=== PATIENT | male | born 1995 | race Caucasian/White ===

== ENCOUNTER 2019-11-20 02:49 | Emergency (ER) | payer OTHER ==
[~2019-11-20] VITALS: Ht 177.8 cm; Wt 68.0 kg
[2019-11-20 02:50] VITALS: BP 123/61
[2019-11-20] MEDS ORDERED: KETOROLAC 30 MG/ML VIAL IVP ONE (03:10)
[2019-11-20] MEDS ORDERED: HYDROcodone/APAP 5/325 MG 1 TAB TAB PO ONE (03:10)
[2019-11-20] MEDS ORDERED: NACL 0.9% 1,000 ML IV ONE (03:10)
[2019-11-20 03:31] LABS: BASOPHILS # (AUTO) 0.2 K/uL (0.00-0.22); BASOPHILS % (AUTO) 2.1 % (0.0-2.0); EOSINOPHILS # (AUTO) 0.1 K/uL (0-0.4); EOSINOPHILS % (AUTO) 1.4 % (0.0-4.0); HEMOGLOBIN 13.9 g/dL (12.0-18.0); LYMPHOCYTES # (AUTO) 2.5 K/uL (2.0-11.5); LYMPHOCYTES % (AUTO) 31.3 % (20.5-51.1); MEAN CORPUSCULAR HEMOGLOBIN 31 pg (27-31); MEAN CORPUSCULAR HGB CONC 35 g/dL (33-37); MEAN CORPUSCULAR VOLUME 89.7 fL (80-94); MONOCYTES % (AUTO) 12.8 % (1.7-9.3); NEUTROPHILS # (AUTO) 4.3 K/uL (1.8-7.7); NEUTROPHILS % (AUTO) 52.4 % (42.2-75.2); PLATELET COUNT (AUTO) 279 K/uL (140-450); RED BLOOD CELL COUNT(AUTO) 4.46 MIL/uL (4.20-6.10); RED CELL DISTRIBUTION WIDTH 12.2 % (11.6-13.7); WHITE BLOOD COUNT (AUTO) 8.1 K/uL (4.8-10.8)
[2019-11-20 03:32] LABS: APPEARANCE,URINE CLOUDY (CLEAR); BILIRUBIN,URINE NEGATIVE (NEGATIVE); BLOOD, URINE 3+ (NEGATIVE); COLOR,URINE YELLOW (YELLOW); LEUKOCYTE ESTERASE ,URINE 3+ (NEGATIVE); NITRITE, URINE NEGATIVE (NEGATIVE); PH,URINE 6.5 (5.0-9.0); UGLUCOSE NEGATIVE (NEGATIVE)
--- NOTE | 2019-11-20 03:33 | NUR ---
PATIENT REPORTS LOWER BACK PAIN AND PAINFUL URINATION FOR 4-5 DAYS. PATIENT ALSO STATING NECK PAIN. NO OTHER SYMPTOMS REPORTED. NO INJURY. NO NVD. LUNGS CLEAR. BOWELS ACTIVE. ABD SOFT AND NON-TENDER. HX: CILIACS DISEASE. BED LOW LOCKED, SIDE RAIL UP ON ONE SIDE. FAMILY AT BEDSIDE.
[2019-11-20 03:52] LABS: BARBITURATE, URINE NEG. ng/ml (NEG <=200); BENZODIAZEPINE, URINE NEG. ng/mL (NEG <=200); CANNABINOID, URINE POS. ng/mL (NEG <=50); COCAINE, URINE NEG. ng/mL (NEG <=300); OPIATE, URINE NEG. ng/mL (NEG <=2000); PHENCYCLIDINE SCREEN,URINE NEG. ng/mL (NEG <=25)
[2019-11-20 03:55] LABS: ALBUMIN 4.1 g/dL (3.4-5.0); ANION GAP 10.8 (8-16); CARBON DIOXIDE 30.2 mmol/L (21-32); CREATININE 0.8 mg/dL (0.6-1.3); TOTAL BILIRUBIN 0.7 mg/dL (0.0-1.0)
[2019-11-20 03:57] LABS: RBC,URINE TOO NUMEROUS TO COUN /HPF (0-5); WBC,URINE TOO MANY TO COUNT /HPF (0-5)
--- NOTE | 2019-11-20 04:41 | NUR ---
PT TAKEN TO CT
--- NOTE | 2019-11-20 04:53 | NUR ---
PT RETURN FROM CT
[2019-11-20] MEDS ORDERED: cefTRIAXone 1,000 MG VIAL ONE (05:04)
--- NOTE | 2019-11-20 05:45 | NUR ---
Dr. Reagan examining patient.
[2019-11-20 05:54] VITALS: BP 118/58
--- NOTE | 2019-11-20 05:55 | NUR ---
Patient discharged with v/s stable. Written and verbal after care instructions given and explained. Patient alert, oriented and verbalized understanding of instructions. Ambulatory with steady gait. All questions addressed prior to discharge. ID band removed. Patient advised to follow up with PMD. Rx of bactrim, norco given. Patient educated on indication of medication including possible reaction and side effects. Opportunity to ask questions provided and answered. Addendum: 11/20/19 at 0556 by POP patient driven home by mother.
== END 2019-11-20 05:55 | disposition home or self-care (01) ==
LOC: MED 02:49
DX: N39.0 Urinary tract infection, site not specified (principal); M54.2 Cervicalgia; Z87.19 Personal history of other diseases of the digestive system
CPT/HCPCS: 36415; 74176; 80053; 80305; 81001; 82150; 83690; 85025; 87086; 87186; 96365; 96375; 99284; J0696; J1885; J7030